=== PATIENT | male | born 1960 | race Caucasian/White ===

== ENCOUNTER 2022-04-02 10:54 | Inpatient (IN) ==
--- NOTE | 2022-03-12 15:48 | PAT Medication Instructions ---
Medication Instructions Date of Service March 12, 2022 Home Medications Medication Instructions Recorded cyclobenzaprine 5 mg tablet 5 mg PO TID PRN muscle spasm #14 12/19/21 tabs albuterol sulfate 90 mcg/actuation aerosol inhaler 2 puff inhalation Q4 PRN amoxicillin 875 mg-potassium clavulanate 125 mg tablet 1 tab PO .BID atorvastatin 20 mg tablet 20 mg PO HS betamethasone valerate 0.1 % topical cream 1 applic topical BID PRN fluticasone 250 mcg-salmeterol 50 mcg/dose blistr powdr for inhalation 1 ea inhalation BID folic acid 1 mg tablet 1 mg PO QAM ipratropium 0.5 mg-albuterol 3 mg (2.5 mg base)/3 mL nebulization soln 3 ml inhalation QID PRN lisinopril 10 mg tablet 10 mg PO HS methotrexate sodium 2.5 mg tablet 15 mg PO .QTHUR polyethylene glycol 3350 17 gram oral powder packet (Miralax) 17 g PO DAILY PRN prednisone 10 mg tablet 10 mg PO .TAPER UD tamsulosin 0.4 mg capsule 0.4 mg PO QPM tiotropium bromide 2.5 mcg/actuation mist for inhalation (Spiriva Respimat) 2 inh inhalation DAILY triamcinolone acetonide 0.1 % topical cream 1 applic topical BID PRN warfarin 5 mg tablet 10 mg PO UD cyclobenzaprine 5 mg tablet 5 mg PO TID PRN STOP 7 days before surgery methotrexate sodium 2.5 mg tablet 15 mg PO .QTHUR-check with prescriber if acceptable to stop for 7 days Continue as directed amoxicillin 875 mg-potassium clavulanate 125 mg tablet 1 tab PO .BID prednisone 10 mg tablet 10 mg PO .TAPER UD ASK your prescriber and surgeon warfarin 5 mg tablet 10 mg PO UD STOP taking 24 hours before surgery betamethasone valerate 0.1 % topical cream 1 applic topical BID PRN triamcinolone acetonide 0.1 % topical cream 1 applic topical BID PRN DO NOT take the morning of surgery folic acid 1 mg tablet 1 mg PO QAM polyethylene glycol 3350 17 gram oral powder packet (Miralax) 17 g PO DAILY PRN cyclobenzaprine 5 mg tablet 5 mg PO TID PRN Take morning of surgery With a small sip of water, OTHERWISE NOTHING TO EAT OR DRINK AFTER MIDNIGHT: albuterol sulfate 90 mcg/actuation aerosol inhaler 2 puff inhalation Q4 PRN(use if needed; please bring with you to hospital day of surgery if possible) fluticasone 250 mcg-salmeterol 50 mcg/dose blistr powdr for inhalation 1 ea inhalation BID ipratropium 0.5 mg-albuterol 3 mg (2.5 mg base)/3 mL nebulization soln 3 ml inhalation QID PRN(if needed) tiotropium bromide 2.5 mcg/actuation mist for inhalation (Spiriva Respimat) 2 inh inhalation DAILY Take evening before surgery albuterol sulfate 90 mcg/actuation aerosol inhaler 2 puff inhalation Q4 PRN(if needed) atorvastatin 20 mg tablet 20 mg PO HS fluticasone 250 mcg-salmeterol 50 mcg/dose blistr powdr for inhalation 1 ea inhalation BID ipratropium 0.5 mg-albuterol 3 mg (2.5 mg base)/3 mL nebulization soln 3 ml inhalation QID PRN(if needed) lisinopril 10 mg tablet 10 mg PO HS tamsulosin 0.4 mg capsule 0.4 mg PO QPM tiotropium bromide 2.5 mcg/actuation mist for inhalation (Spiriva Respimat) 2 inh inhalation DAILY cyclobenzaprine 5 mg tablet 5 mg PO TID PRN(if needed) Other Notes If you have any questions please call us at [phone] or [phone] or [phone] or [phone]
--- NOTE | 2022-03-19 14:09 | Anesthesiology Consultation ---
Date of Service March 19, 2022 Assessment & Plan (1) Encounter for pre-operative examination: Chart Review Chart Review: Acceptable Risk for Surgery (pending PCP clearance 03/22/22) and Patient seen in Pre Admission Testing -Awaiting PCP clearance 03/22/22 - Check coags AM DOS Per PAT appt on 03/19/22, patient denies any recent travel or large group activities. Pt is vaccinated for Covid. Will leave to surgeon's discretion if preop Covid testing needed. Educated on importance of using Covid precautions one week prior to surgery Teaching & Discussion Pre-Anesthesia Teaching/Discussion Notes: Instructed NPO after midnight before surgery,except medications with 15 cc of water. Medication instructions provided according to the PAT guidelines. History Surgery Operation Date: 04/02/22 10:25 Proposed Procedures p L2-L3 Decompression and Fusion, L3-L5 Hardware Removal, Spinal Cord Monitoring - Jay Gallardo, Height/Weight Height: 5 ft 8 in Weight: 114.6 kg Allergies Allergy/AdvReac Type Severity Reaction Status Date / Time No Known Allergies Allergy Verified 03/12/22 14:33 Medications Home Medications Medication Instructions Recorded Confirmed Last Taken albuterol sulfate 90 mcg/actuation 2 puff inhalation Q4 PRN Shortness 12/18/21 03/12/22 Unknown aerosol inhaler Of Breath Or Wheezing amoxicillin 875 mg-potassium 1 tab PO .BID UD 12/18/21 03/12/22 Unknown clavulanate 125 mg tablet atorvastatin 20 mg tablet 20 mg PO HS 12/18/21 03/12/22 Unknown betamethasone valerate 0.1 % 1 applic topical BID PRN FLARE UPS 12/18/21 03/12/22 Unknown topical cream fluticasone 250 mcg-salmeterol 50 1 ea inhalation BID 12/18/21 03/12/22 Unknown mcg/dose blistr powdr for inhalation folic acid 1 mg tablet 1 mg PO QAM 12/18/21 03/12/22 Unknown ipratropium 0.5 mg-albuterol 3 mg 3 ml inhalation QID PRN Shortness 12/18/21 03/12/22 Unknown (2.5 mg base)/3 mL nebulization Of Breath Or Wheezing soln lisinopril 10 mg tablet 10 mg PO HS 12/18/21 03/12/22 Unknown methotrexate sodium 2.5 mg tablet 15 mg PO .QTHUR 10/11/22 01/03/23 Unknown polyethylene glycol 3350 17 gram 17 g PO DAILY PRN Constipation 12/18/21 03/12/22 Unknown oral powder packet (Miralax) prednisone 10 mg tablet 10 mg PO .TAPER UD 12/18/21 03/12/22 Unknown tamsulosin 0.4 mg capsule 0.4 mg PO QPM 12/18/21 03/12/22 Unknown tiotropium bromide 2.5 2 inh inhalation DAILY 12/18/21 03/12/22 Unknown mcg/actuation mist for inhalation (Spiriva Respimat) triamcinolone acetonide 0.1 % 1 applic topical BID PRN BREAKOUTS 12/18/21 03/12/22 Unknown topical cream warfarin 5 mg tablet 10 mg PO UD 12/18/21 03/12/22 Unknown cyclobenzaprine 5 mg tablet 5 mg PO TID PRN muscle spasm #14 12/19/21 03/12/22 Unknown tabs Past Medical History Medical History Arthritis ? TYPE>BEEN ON METHOTREXATE FOR 2 YEARS Chronic obstructive pulmonary disease Breathing stable Degenerative disc disease Hyperlipidemia Pulmonary embolism 5-6 YEARS AGO *REASON FOR WARFARIN (UNSURE OF REASON) Sleep apnea BIPAP WITH 2L OF O2 AT HS Urinary frequency Exercise / Class Metabolic Activity III < 4 Walking/Shop/Light housework (mild SOB, no chest pain with one flight of stairs ) Past Family History Family History Other No family history of adverse response to anesthesia Past Surgical History Surgical History H/O elbow surgery RT ELBOW DEBRIDEMENT 20+ YEARS AGO *MRSA H/O vasectomy History of arthroscopy LEFT ACL/KNEE History of colonoscopy History of lumbar surgery X 2 *FUSION WITH HARDWARE History of surgery History of circumcision and vasectomy 20 years ago History of tooth extraction Past Anesthesia History No Hx of Anesthesia Complications and No Family Hx of Anesthesia Complications History of PONV No Hx of PONV and No Hx of Motion Sickness Social History Smoking Status: Current every day smoker tobacco type: cigarettes Smoking cigarettes per day: 20 CIG DAILY X 47 YEARS>ADVISED Do You Dip or Chew Tobacco: No Hx Alcohol Use: Yes alcohol intake frequency: holidays/special occasions only Hx Substance Use: No substance use type: does not use Review of Systems Chronic cough- stable Patient denies chest pain, shortness of breath at rest, reflux, wheezing, palpitations. No hx of seizures, stroke, [place]. No hx of blood transfusions Physical Exam Vital Signs VITALS BP 123/81 P 70 TEMP 98.5 SP02 95% RESP 16 Constitutional no acute distress ENMT Mouth: no TMJ clicking Thyromental Distance: > or= 3.5 Finger Breadths (4.0) Mallampati Class: I (smaller airway) Mouth / Teeth: 1. Loose Missing molars Neck + limited neck extension (mild) Respiratory normal respiratory effort; no respiratory distress Auscultation: lungs clear to auscultation bilaterally and + diminished lung jerome nds (throughout ); no wheezes Cardiovascular Rate/Rhythm: regular rate and regular rhythm Heart Sounds: no murmur Vessels: no carotid bruit Heart sounds diminished Musculoskeletal Spine: + pain with cervical ROM Extremities: extremities normal to inspection Psychiatric Orientation: alert Lab Results Anesthesia Preop Results Results Anesthesia Widget: WBC 7.91 K/ul (4.8-10.8) 03/19/22 Hgb 18.2 g/dl (14.0-18.0) H 03/19/22 Hct 52.6 % (40.1-51.0) H 03/19/22 Plt 198 K/uL (130-400) 03/19/22 Na 139 mmol/L (136-145) 03/19/22 K 4.1 mmol/L (3.5-5.1) 03/19/22 Cl 104 mmol/L (98-107) 03/19/22 CO2 30 mmol/L (21-32) 03/19/22 BUN 15 mg/dl (6-23) 03/19/22 Creat 0.79 mg/dl (0.6-1.4) 03/19/22 Glucose Level 97 mg/dl (70-99(Fasting)) 03/19/22 PT 27.3 Seconds (9.0-12.0) H 03/19/22 PTT 44.6 Seconds (21.0-31.0) H 03/19/22 INR 2.7 (0.9-1.1) H 03/19/22 Urine Color Yellow 03/19/22 Urine Appearance Clear (Clear) 03/19/22 Urine pH 5.0 (4.5-7.5) 03/19/22 Urine Specific [place] 1.022 (1.000-1.030) 03/19/22 Urine Protein Negative (Negative) 03/19/22 Urine Glucose (UA) Negative (Negative) 03/19/22 Urine Ketones Negative (Negative) 03/19/22 Urine Blood 2+ (Negative) H 03/19/22 Urine Nitrite Negative (Negative) 03/19/22 Urine Bilirubin Negative (Negative) 03/19/22 Urine Urobilinogen Negative (Negative) 03/19/22 Urine Leukocyte Esterase Negative (Negative) 03/19/22 Urine WBC (Auto) 1-5 /hpf (0-5) 03/19/22 Urine RBC (Auto) 0-4 /hpf (0-4) 03/19/22 Urine Hyaline Casts (Auto) 1-5 /lpf (0-5) 03/19/22 Urine Epithelial Cells (Auto) 5-10 /lpf (0-5) H 03/19/22 Urine Bacteria (Auto) Negative (Negative) 03/19/22 Blood Type B Positive 03/19/22 Antibody Screen NEGATIVE 03/19/22 Testing Electrocardiogram Date: 03/19/22 Findings: + NSR @ (71bpm ) Normal EKG per cardio Chest X-Ray Date: 03/19/22 Findings: + NAD FINDINGS: PA and lateral chest radiographs are compared to study dated 02/25/2015 and correlated with chest CT dated 07/07/2015. The cardiomediastinal silhouette is top normal for projection noting atherosclerotic calcification of the thoracic aorta. Emphysema and chronic interstitial thickening is similar to previous. Foci of parenchymal scarring are seen throughout both lungs, greatest in the left midlung. No airspace consolidation or pleural effusion is identified. There is no pneumothorax. The bony thorax appears intact. IMPRESSION: Emphysema and chronic parenchymal changes as above with no acute cardiopulmonary abnormality identified. Cervical Spine Date: 03/19/22 FINDINGS: The cervical spine is visualized from C1 through the superior endplate of T1. There is no fracture. No subluxation. Severe disc space narrowing at C4- C5 and C6-C7. Mild to moderate disc space narrowing at C3-C4 and C5-C6. Mild facet degenerative changes throughout the cervical spine. Calcifications within the bilateral carotid bifurcations are noted. Prevertebral soft tissues and the atlantodens interval are intact. IMPRESSION: 1. No fracture or subluxation within the cervical spine. 2. Degenerative changes as described above. COVID-19 Risk Screen Screening Information COVID-19 Screen Date: 03/19/22 Exposure 21 Days Family/Household +COVID Last 21 Days: No Exposure 10 Days Any COVID Exposure Last 10 Days: No Symptoms Last 10 Days Experienced COVID Sx Last 10 Days: No + COVID 0-90 Days COVID + in Last 0-90 Days: No Risk Plan COVID Risk Plan: No Risk Identified Patient Education COVID Preop Screening Education Complete: Yes
[~2022-04-02 10:54] MED LIST: ACETAMINOPHEN 500 MG TAB PO SCH; CeleBREX 200 MG CAP PO SCH; GABAPENTIN 600 MG DOSE PO SCH; LR 15ML/HR IV SCH; SUGAMMADEX SODIUM 200 MG/2 ML VIAL IV ONE; ceFAZolin 2000MG 2,000 MG/15 ML SYR IV SCH
[2022-04-02] MEDS ORDERED: ALBUT/IPRATROP 3MG/0.5MG NEB 3 ML VIAL NEB STA (11:46)
[2022-04-02 12:09] LABS: Partial Thromboplastin Ratio 1.1; Partial Thromboplastin Time 30.2 Seconds (21.0-31.0); Prothrombin Time 10.3 Seconds (9.0-12.0)
[2022-04-02] MEDS ORDERED: ATROPINE SULFATE 0.1 MG/ML 10ML SYR IV PRN (12:52)
[2022-04-02] MEDS ORDERED: ONDANSETRON INJ 2 MG/ML 2 ML VIAL IV PRN ×2 (12:52→17:16)
[2022-04-02] MEDS ORDERED: ePHEDrine sulfate 50 MG/ML AMP IV PRN (12:52)
--- NOTE | 2022-04-02 13:01 | History & Physical Bridge Note ---
Date of Service April 02, 2022 History & Physical Bridge Note I have examined the patient, reviewed the History & Physical and in the interval since the performance of the History & Physical I have noted the following changes of clinical significance: no changes noted
--- NOTE | 2022-04-02 13:02 | History & Physical Report ---
Date of Service April 02, 2022 Assessment & Plan (1) Neurogenic claudication due to lumbar spinal stenosis: Plan: L2-L3 decompression fusion, L3-L5 hardware removal History of Present Illness Chief Complaint: Back and leg pain Primary Care Provider: Sumit Levy MD This is a 61-year-old male presents with chronic persistent back and leg pain after failing course of nonoperative care is here for surgical invention. Allergies Allergy/AdvReac Type Severity Reaction Status Date / Time No Known Allergies Allergy Verified 04/02/22 11:16 Home Medications Medication Instructions Recorded Confirmed Type albuterol sulfate 90 mcg/actuation 2 puff inhalation Q4 PRN Shortness 12/18/21 04/02/22 History aerosol inhaler Of Breath Or Wheezing amoxicillin 875 mg-potassium 1 tab PO .BID UD 12/18/21 04/02/22 History clavulanate 125 mg tablet atorvastatin 20 mg tablet (Lipitor) 20 mg PO HS 12/18/21 04/02/22 History betamethasone valerate 0.1 % 1 applic topical BID PRN FLARE UPS 12/18/21 04/02/22 History topical cream fluticasone 250 mcg-salmeterol 50 1 ea inhalation BID 12/18/21 04/02/22 History mcg/dose blistr powdr for inhalation (Advair Diskus) folic acid 1 mg tablet 1 mg PO QAM 12/18/21 04/02/22 History ipratropium 0.5 mg-albuterol 3 mg 3 ml inhalation QID PRN Shortness 12/18/21 04/02/22 History (2.5 mg base)/3 mL nebulization Of Breath Or Wheezing soln lisinopril 10 mg tablet 10 mg PO HS 12/18/21 04/02/22 History methotrexate sodium 2.5 mg tablet 15 mg PO .QTHUR 12/18/21 04/02/22 History polyethylene glycol 3350 17 gram 17 g PO DAILY PRN Constipation 12/18/21 04/02/22 History oral powder packet (Miralax) prednisone 10 mg tablet 10 mg PO .TAPER UD 12/18/21 04/02/22 History tamsulosin 0.4 mg capsule (Flomax) 0.4 mg PO QPM 12/18/21 04/02/22 History tiotropium bromide 2.5 2 inh inhalation DAILY 12/18/21 04/02/22 History mcg/actuation mist for inhalation (Spiriva Respimat) triamcinolone acetonide 0.1 % 1 applic topical BID PRN BREAKOUTS 12/18/21 04/02/22 History topical cream warfarin 5 mg tablet 10 mg PO UD 12/18/21 04/02/22 History cyclobenzaprine 5 mg tablet 5 mg PO TID PRN muscle spasm #14 12/19/21 04/02/22 Rx tabs enoxaparin 100 mg/mL subcutaneous 100 mg subcut Q12H 04/02/22 04/02/22 History syringe (Lovenox) Past Med/Surg History Medical History (Updated 04/02/22 @ 13:02 by Jay Gallardo DO) Arthritis ? TYPE>BEEN ON METHOTREXATE FOR 2 YEARS Chronic obstructive pulmonary disease Breathing stable Degenerative disc disease Hyperlipidemia Hypertension Per PCP instructions Lupus anticoagulant disorder Per PCP records Hx of PE - On Warfarin Pulmonary embolism 5-6 YEARS AGO *REASON FOR WARFARIN (UNSURE OF REASON) Sleep apnea BIPAP WITH 2L OF O2 AT HS Urinary frequency Surgical History H/O elbow surgery RT ELBOW DEBRIDEMENT 20+ YEARS AGO *MRSA H/O vasectomy History of arthroscopy LEFT ACL/KNEE History of colonoscopy History of lumbar surgery X 2 *FUSION WITH HARDWARE History of surgery History of circumcision and vasectomy 20 years ago History of tooth extraction Family History Other No family history of adverse response to anesthesia Social History Smoking Status: Current every day smoker Cigarettes Per Day: 20 CIG DAILY X 47 YEARS>ADVISED; Second Hand Exposure: Yes (FAMILY SMOKES); Do You Dip or Chew Tobacco: No; Hx Alcohol Use: Yes Hx Substance Use: No Preferred Language: Sinhala Firefighting Equipment Specialist Required: No Beliefs That Will Affect Care: None Current Living Situation: Spouse Feels Safe at Home: Yes Safety Concerns: Feels Safe At This Time Assistive Devices: BiPap, Glasses, Nebulizer and Oxygen - at Night Physical Exam Physical Exam: Patient is alert and oriented Heart regular rhythm Lungs clear Results & Data Results & Data ([facility]) Vital Signs (Past 12 Hours) Vital Signs Temp Pulse Resp BP Pulse Ox O2 Del Method 04/02/22 11:58 74 16 95 Room Air 04/02/22 11:22 37.1 C 83 22 155/85 H 93 Room Air 04/02/22 11:22 Room Air
[2022-04-02] MEDS ORDERED: BUPIVACAINE/EPINEPHRINE 0.25% 1:200,000 30 ML VIAL ONE (13:13)
[2022-04-02] MEDS ORDERED: ceFAZolin 330 MG/ML 1 GM VIAL ONE (13:13)
[2022-04-02] MEDS ORDERED: fentaNYL citrate 100 MCG/2 ML VIAL ONE ×2 (13:17→14:36)
[2022-04-02] MEDS ORDERED: MIDAZOLAM HCL 1 MG/ML 2ML VIAL ONE (13:17)
[2022-04-02] MEDS ORDERED: PROPOFOL IV EMULSION 10 MG/ML 20 ML VIAL IV ONE (14:03)
[2022-04-02] MEDS ORDERED: ROCURONIUM BROMIDE 10 MG/ML 5 ML VIAL IV ONE ×2 (14:03→14:04)
[2022-04-02] MEDS ORDERED: LIDOCAINE 2% MPF LOCAL 5 ML VIAL INFIL ONE (14:03)
[2022-04-02] MEDS ORDERED: KETAMINE 50 MG/5 ML SYRINGE ONE (14:35)
[2022-04-02] MEDS ORDERED: ONDANSETRON INJ 2 MG/ML 2 ML VIAL ONE (14:39)
[2022-04-02] MEDS ORDERED: DEXAMETHASONE SOD INJ 4 MG/ML VIAL ONE (14:39)
[2022-04-02] MEDS ORDERED: FLOSEAL HEMOSTATIC MATRIX 10ML TOP ONE (15:07)
--- NOTE | 2022-04-02 15:15 | Operative Report ---
Post Operative Report Pre & Post Diagnosis Operation Date: 04/02/22 12:25 Pre-Op Diagnosis: Intervertebral Disc Disorders with Radiculopathy Post-Op Diagnosis: Intervertebral Disc Disorders with Radiculopathy I identified the patient and participated in the time-out.: Yes Procedure Operation Date: 04/02/22 12:25 Actual Procedures #1 lumbar decompression bilateral medial facetectomies and foraminotomies L1-L2 L2-L3. #2 posterior spinal fusion L2-L3. #3 placement of posterior instrumentation from L2 with connectors to L3-L4. #4 interbody fusion L2-L3. #5 placement of Spira 9 x 26 mm cage at L2-L3. #6 placement locally harvested morselized autograft in the posterior gutters. #7 placement of I factor model V toss in the interbody space and posterior lateral gutters. Surgeon Jay Gallardo, DO Senior Manufacturing Engineer Josette Miller Estimated Blood Loss 150 Findings See Below Patient is 5 foot 8 weighing 115 kg with a BMI in excess of 38. Patient's body habitus did contribute to significant technical difficulty with patient positioning and exposure. This had at least 50% increased operative time. Specimens None Indications This is a 61-year-old male who presents above-mentioned diagnosis after failed course of nonoperative care is here for surgical invention. Description of Procedure Patient was met with identified informed consent obtained. Patient was then taken to the operative suite underwent ablation placed in a prone position on the Angel table atop the Orlin frame. All bony prominences well-padded eyes inspected to ensure no external pressure placed upon the. This point the lumbar spine was prepped and draped in a sterile fashion. Sharp dissection with the assistance of Bovie cautery performed down to and exposing the lamina and transverse processes of L2 and instrumentation at L3-L4. I then performed a complete laminectomy of L2 partial laminectomy L1 including bilateral medial facetectomies and foraminotomies addressing severe spinal stenosis. Pedicle screws then placed in L2 and a connector attached to the kamila between L3 and L4. By way of transforaminal approach and right complete discectomy of L 2 L3 was performed endplates curetted to subcortically bone and a 9 x 26 mm spiral cage with I factor tapped in position. The proper sized kamila was then placed and locked in position bilaterally. The transverse processes of L2-L3 burred to subcortically bone. I factor model V testing locally harvested morselized a utograft was then placed in the posterior gutters. 15 round CHAPARRO drain inserted. The incision was then closed with 1 Vicryl the fascia 2-0 Vicryl subcutaneously and 4 Monocryl for final skin closure. Steri-Strips dressings placed. Patient awakened and taken to PACU in stable condition. Please note spinal cord monitoring was utilized at the procedure no changes noted. Lastly Josette Miller was present at the entire surgeon while the patient positioning complex portions of the surgery and final skin closure. I attest to the content of the Intraoperative Record and any orders documented therein. Any exceptions are noted below.
--- NOTE | 2022-04-02 15:21 | Fluoroscopy Report ---
FL lumbar spine 2-3V CLINICAL HISTORY: L2-L3 DECOMPRESSION FUSION L3-L5 HW REMOVAL TECHNIQUE: 2 views were obtained with the C-arm in the OR with the above procedure. Total fluoroscopy time was 22.6 seconds. Radiation dose was 23.09 mGy. Comparison: None available at the time of this dictation. FINDINGS/IMPRESSION: Intraoperative images were obtained of L2-L3 discectomy and fusion. Please correlate with intraoperative fluoroscopy and operative report. ACT 112: Negative or not required by law. Electronically signed by: Scott Currie M.D. 04/02/2022 3:19 PM
[2022-04-02] MEDS: fentaNYL citrate 100 MCG/2 ML VIAL IV PRN ×2 (15:50→16:00)
[2022-04-02] MEDS: HYDROmorphone INJ 2 MG/ML SYR/VIAL IV PRN ×2 (16:23→16:32)
--- NOTE | 2022-04-02 16:55 | Anesthesiology Progress Note ---
Date of Service April 02, 2022 Anesthesia Post Procedure Vital Signs Vital Signs: Temp Pulse Resp BP Pulse Ox O2 Del Method O2 Flow Rate 04/02/22 16:40 78 12 140/90 92 Nasal Cannula 4 04/02/22 16:30 72 12 144/81 H 92 Nasal Cannula 4 04/02/22 16:20 66 12 128/83 94 Nasal Cannula 4 04/02/22 16:10 67 22 138/81 93 Oxymask 3 04/02/22 16:00 76 20 140/88 93 Oxymask 4 04/02/22 15:50 87 16 166/94 H 93 Oxymask 6 04/02/22 15:43 36.5 C 89 16 141/78 H 96 Oxymask 6 04/02/22 11:58 74 16 95 Room Air 04/02/22 11:22 37.1 C 83 22 155/85 H 93 Room Air 04/02/22 11:22 Room Air Pain Intensity Back: Pain Intensity: 6 Transfer of Care Handoff Completed per policy Notes Mental Status: alert / awake / arousable Patient Amnestic to Procedure: Yes Nausea / Vomiting: adequately controlled Pain: adequately controlled Airway Patency, RR, SpO2: stable & adequate BP & HR: stable & adequate Hydration State: stable & adequate Anesthetic Complications: no major complications apparent
[2022-04-02] MEDS ORDERED: LORazepam 0.5 MG TAB PO PRN (17:16)
[2022-04-02] MEDS ORDERED: HYDROmorphone INJ 0.5 MG/0.5 ML SYR IV PRN (17:16)
[2022-04-02] MEDS ORDERED: SOD PHOSPHATE/SOD BIPHOSPHATE ENEMA 132 ML BTL PR PRN (17:16)
[2022-04-02] MEDS ORDERED: ALUMINUM/MAGNESIUM SUSP 30 ML UDC PO PRN (17:16)
[2022-04-02] MEDS ORDERED: diphenhydrAMINE Capsule 25 MG CAP PO PRN (17:16)
[2022-04-02] MEDS ORDERED: METOCLOPRAMIDE HCL INJ 5 MG/ML 2 ML VIAL IV PRN (17:16)
[2022-04-02] MEDS ORDERED: traMADol HCL 50 MG TABLET PO PRN (17:16)
[2022-04-02] MEDS ORDERED: NALOXONE HCL 0.4 MG/1 ML VIAL/CARP IV PRN (17:16)
[2022-04-02] MEDS ORDERED: bisacodyL 10 MG SUPP PR PRN (17:16)
[2022-04-02] MEDS ORDERED: TRIAMCINOLONE ACET 0.1% CR 15 GM TUBE TOP PRN (17:16)
[2022-04-02] MEDS ORDERED: MAGNESIUM HYDROXIDE SUSP 30 ML UDC PO PRN (17:16)
[2022-04-02] MEDS ORDERED: ALBUT/IPRATROP 3MG/0.5MG NEB 3 ML VIAL INH PRN (17:16)
[2022-04-02] MEDS ORDERED: FAMOTIDINE 20 MG TAB PO PRN (17:16)
[2022-04-02] MEDS ORDERED: DO NOT ADMINISTER FLU VACCINE PRN (17:16)
[2022-04-02] MEDS ORDERED: LORazepam 2 MG/1 ML VIAL IV PRN (17:16)
[2022-04-02] MEDS ORDERED: PROMETHAZINE HCL 12.5 MG in SODIUM CHLORIDE 0.9% 50 ML IV PRN (17:16)
[2022-04-02] MEDS ORDERED: hydrOXYzine HCl 25 MG TAB PO PRN (17:16)
[2022-04-02] MEDS ORDERED: ONDANSETRON 4 MG OD TAB PO PRN (17:16)
[2022-04-02] MEDS ORDERED: ACETAMINOPHEN 1,000 MG/100 ML VIAL IV PRN (17:16)
[2022-04-02] MEDS ORDERED: CYCLOBENZAPRINE HCL 5 MG TAB PO PRN (17:16)
[2022-04-02] MEDS ORDERED: HYDROmorphone INJ 1 MG/ML SYRINGE IV PRN (17:16)
[2022-04-02] MEDS ORDERED: ALBUTEROL HFA 8 GM INHALER INH PRN (17:16)
[2022-04-02] MEDS ORDERED: DO NOT ADMINISTER PNEUMOCOCCAL VACCINE PRN (17:16)
[2022-04-02] MEDS: LACTATED RINGER'S 1,000 ML IV SCH (17:55)
[2022-04-02] MEDS: oxyCODONE HCL IR 5 MG TAB (IMMEDIATE RELEASE) PO PRN ×2 (18:02→21:58)
--- NOTE | 2022-04-02 19:28 | Hospitalist Consultation ---
Date of Consultation April 02, 2022 Assessment & Plan (1) History of spinal surgery: This is a 61yo F with a PMH of PE on coumadin, current 1 ppd smoker, ROWAN on Bipap, COPD and other medical problems as below who is POD#0 s/p lumbar decompression bilateral medial facetectomies and foraminotomies L1-L2 L2-L3, posterior spinal fusion L2-L3 and placement of posterior instrumentation from L2 with connectors to L3-L4 by Dr. Gallardo. POD#0 s/p lumbar decompression bilateral medial facetectomies and foraminotomies L1-L2 L2-L3, posterior spinal fusion L2-L3 and placement of posterior instrumentation from L2 with connectors to L3-L4 by Dr. Gallardo Per ortho for pain control, wound care, anticoagulation and activities Monitor H&H (EBL 150ml, pre-op hgb 18.2) Continue incentive spirometry, PT/OT when appropriate (2) Pulmonary embolism: History of PE and lupus anticoagulant syndrome on Coumadin Coumadin has been held and patient has been bridged with subcu Lovenox, per anticoagulation clinic Due to afternoon surgery today, will wait until tomorrow afternoon to resume Coumadin Check INR tomorrow, discuss with Dr. Gallardo Continue subcu Lovenox as scheduled below: POD#1 : Coumadin 10-15mg @ 1600, Lovenox 100mg @ 2000 POD#2 : Coumadin 10mg @ 1600, Lovenox 100mg @ 0800, 2000 POD#3 : Resume home coumadin schedule (5mg MoFri, 10mg all other days), Lovenox 100mg @ 0800, 2000 until INR therapeutic or seen by MTM (3) Arthritis: History of inflammatory polyarthritis on methotrexate -hold for now per Ortho (4) COPD, moderate: At baseline. Continue Spiriva, DuoNeb as needed. Encourage incentive spirometry (5) Tobacco abuse: Smoking 1 pack/day. Declined nicotine patch. Continue discussion of cessation (6) Obesity (BMI 30-39.9): (7) Sleep apnea: Bipap HS Code status:DVT ppx: per primary service PCP: Mildred Dispo: Per primary service Patient seen in collaboration with Dr. García. Please see addendum. Thank you for this consultation. We will follow the patient with you during their hospital stay. You can reach a member of the [facility] Hospitalist Team 30/09 via [employer]. Supervising Physician Co-Signing Physician Notes Pt is a 61 y/o M with hx of inflammatory arthritis on MTX, COPD, HTN, ROWAN on BiPAP, hx of PE on Coumadin admitted for L2-L3 discectomy and fusion and consulted for medical co-management. PE: NAD, Well developed Cardiac: Normal S1/S2, no murmur Lungs: CTA, no wheezing or crackles Abd: Soft, ND, NT MSK: able to move his toes Psych: AAOx3, normal affect A/P: S/P L2-L3 decompression and fusion: -POD #0 -pt is recovering well - VSS except for increase in BP - monitor CBC and BMP -pain management per ortho team -PT/OT - last BM: today --- continue Colace Hx of PE: -pt was bridged to lovenox prior to surgery -pt underwent surgery 3PM today -per Coumadin MTM clinic they recommended Coumadin 15mg tonight ---- however will start Coumadin tomorrow night with lovenox 100mg at 8pm Other chronic conditions: plan as above History of Present Illness Reason for Consultation: post op med mgmt Attending Physician: Jay Gallardo DO History of Present Illness This is a 61yo F with a PMH of PE on coumadin, current 1 ppd smoker, ROWAN on Bipap, COPD and other medical problems as below who is POD#0 s/p lumbar decompression bilateral medial facetectomies and foraminotomies L1-L2 L2-L3, posterior spinal fusion L2-L3 and placement of posterior instrumentation from L2 with connectors to L3-L4 by Dr. Gallardo. Patient is feeling well postoperatively, just having some incisional discomfort. Denies any paresthesias or pain in bilateral lower extremities. Tolerated dinner without nausea or vomiting. Does have history of ROWAN on BiPAP and is currently on supplemental oxygen saturating at 94%. Is on Coumadin for history of PE and has been bridging with subcu Lovenox which he took last yesterday per instructions. Methotrexate has been held. Denies fever, chills, headache, lightheadedness, chest pain, palpitations, shortness of breath, abdominal pain, dysuria, constipation or diarrhea. Allergies Allergy/AdvReac Type Severity Reaction Status Date / Time No Known Allergies Allergy Verified 04/02/22 11:16 Home Medications Medication Instructions Recorded Confirmed Type albuterol sulfate 90 mcg/actuation 2 puff inhalation Q4 PRN Shortness 12/18/21 04/02/22 History aerosol inhaler Of Breath Or Wheezing amoxicillin 875 mg-potassium 1 tab PO .BID UD 12/18/21 04/02/22 History clavulanate 125 mg tablet atorvastatin 20 mg tablet (Lipitor) 20 mg PO HS 12/18/21 04/02/22 History betamethasone valerate 0.1 % 1 applic topical BID PRN FLARE UPS 12/18/21 04/02/22 History topical cream fluticasone 250 mcg-salmeterol 50 1 ea inhalation BID 12/18/21 04/02/22 History mcg/dose blistr powdr for inhalation (Advair Diskus) folic acid 1 mg tablet 1 mg PO QAM 12/18/21 04/02/22 History ipratropium 0.5 mg-albuterol 3 mg 3 ml inhalation QID PRN Shortness 12/18/21 04/02/22 History (2.5 mg base)/3 mL nebulization Of Breath Or Wheezing soln lisinopril 10 mg tablet 10 mg PO HS 12/18/21 04/02/22 History methotrexate sodium 2.5 mg tablet 15 mg PO .QTHUR 12/18/21 04/02/22 History polyethylene glycol 3350 17 gram 17 g PO DAILY PRN Constipation 12/18/21 04/02/22 History oral powder packet (Miralax) prednisone 10 mg tablet 10 mg PO .TAPER UD 12/18/21 04/02/22 History tamsulosin 0.4 mg capsule (Flomax) 0.4 mg PO QPM 12/18/21 04/02/22 History tiotropium bromide 2.5 2 inh inhalation DAILY 12/18/21 04/02/22 History mcg/actuation mist for inhalation (Spiriva Respimat) triamcinolone acetonide 0.1 % 1 applic topical BID PRN BREAKOUTS 12/18/21 04/02/22 History topical cream warfarin 5 mg tablet 10 mg PO UD 12/18/21 04/02/22 History cyclobenzaprine 5 mg tablet 5 mg PO TID PRN muscle spasm #14 12/19/21 04/02/22 Rx tabs enoxaparin 100 mg/mL subcutaneous 100 mg subcut Q12H 04/02/22 04/02/22 History syringe (Lovenox) Patient History Medical History (Updated 04/02/22 @ 20:43 by Marisela Charlton PA-C) Arthritis ? TYPE>BEEN ON METHOTREXATE FOR 2 YEARS Chronic obstructive pulmonary disease Breathing stable Degenerative disc disease Hyperlipidemia Hypertension Per PCP instructions Lupus anticoagulant disorder Per PCP records Hx of PE - On Warfarin Pulmonary embolism 5-6 YEARS AGO *REASON FOR WARFARIN (UNSURE OF REASON) Sleep apnea BIPAP WITH 2L OF O2 AT HS Urinary frequency Surgical History (Updated 04/02/22 @ 20:43 by Marisela Charlton PA-C) H/O elbow surgery RT ELBOW DEBRIDEMENT 20+ YEARS AGO *MRSA H/O vasectomy History of arthroscopy LEFT ACL/KNEE History of colonoscopy History of lumbar surgery X 2 *FUSION WITH HARDWARE History of surgery History of circumcision and vasectomy 20 years ago History of tooth extraction Family History Other Lung disease No family history of adverse response to anesthesia Social History Smoking Status: Current every day smoker Cigarettes Per Day: 20 CIG DAILY X 47 YEARS>ADVISED; Second Hand Exposure: Yes (FAMILY SMOKES); Do You Dip or Chew Tobacco: No; Hx Alcohol Use: Yes Alcohol Intake Frequency: Monthly or Less Hx Substance Use: No Preferred Language: Citizen Of [place] Multi Sensor Operator Required: No Beliefs That Will Affect Care: None Current Living Situation: Spouse Feels Safe at Home: Yes Safety Concerns: Feels Safe At This Time Assistive Devices: BiPap, Glasses, Nebulizer and Oxygen - at Night Review of Systems Review of Systems: At least ten systems reviewed and negative except as noted in the HPI. Physical Exam Physical Exam: Please see Dr. García's addendum for physical exam. Results & Data Results & Data ([facility]) Vital Signs (Past 12 Hours) Vital Signs Temp Pulse Pulse Resp BP Pulse Ox O2 Del Method 04/02/22 18:17 36.8 C 68 20 146/75 H 94 Nasal Cannula 04/02/22 17:45 36.8 C 68 18 148/83 H 93 Nasal Cannula 04/02/22 17:40 Nasal Cannula 04/02/22 17:15 36.9 C 76 18 146/90 H 94 Nasal Cannula 04/02/22 17:00 67 12 136/86 94 Nasal Cannula 04/02/22 16:50 36.7 C 64 12 138/81 93 Nasal Cannula 04/02/22 16:40 78 12 140/90 92 Nasal Cannula 04/02/22 16:30 72 12 144/81 H 92 Nasal Cannula 04/02/22 16:20 66 12 128/83 94 Nasal Cannula 04/02/22 16:10 67 22 138/81 93 Oxymask 04/02/22 16:00 76 20 140/88 93 Oxymask 04/02/22 15:50 87 16 166/94 H 93 Oxymask 04/02/22 15:43 36.5 C 89 16 141/78 H 96 Oxymask 04/02/22 11:58 74 16 95 Room Air 04/02/22 11:22 37.1 C 83 22 155/85 H 93 Room Air 04/02/22 11:22 Room Air O2 Flow Rate 04/02/22 18:17 3.5 04/02/22 17:45 3.5 04/02/22 17:40 3.5 04/02/22 17:15 4 04/02/22 17:00 4 04/02/22 16:50 4 04/02/22 16:40 4 04/02/22 16:30 4 04/02/22 16:20 4 04/02/22 16:10 3 04/02/22 16:00 4 04/02/22 15:50 6 04/02/22 15:43 6 04/02/22 11:58 04/02/22 11:22 04/02/22 11:22
[2022-04-02] MEDS: DOCUSATE SODIUM/SENNA 50/8.6MG TAB PO SCH (20:02)
[2022-04-02] MEDS: TAMSULOSIN HCL 0.4 MG CAP PO SCH (20:02)
[2022-04-02] MEDS: ATORVASTATIN 20 MG TAB PO SCH (20:02)
[2022-04-02] MEDS: lisinopril 10 MG TAB PO SCH (20:02)
[2022-04-02] MEDS: ceFAZolin 2000MG 2,000 MG/15 ML SYR IV SCH (21:30)
[2022-04-03] MEDS: LACTATED RINGER'S 1,000 ML IV SCH (02:24)
[2022-04-03] MEDS: ceFAZolin 2000MG 2,000 MG/15 ML SYR IV SCH (05:26)
[2022-04-03] MEDS: POLYETHYLENE (MIRALAX) 17 GM PACK PO SCH ×4 (05:26→23:28)
[2022-04-03] MEDS: oxyCODONE HCL IR 5 MG TAB (IMMEDIATE RELEASE) PO PRN ×4 (05:31→23:28)
[2022-04-03] MEDS: ACETAMINOPHEN 500 MG TAB PO PRN (05:31)
[2022-04-03 06:48] LABS: Basophils # (auto) 0.02 K/uL (0-0.2); Basophils % (auto) 0.2 %; Hematocrit (blood only) 50.1 % (40.1-51.0); Hemoglobin 17.1 g/dl (14.0-18.0); Immature Granulocytes # (auto) 0.05 K/uL (0.00-0.02); Immature Granulocytes % (auto) 0.5 %; Lymphocytes % (auto) 10.8 %; Mean Corpuscular Hemoglobin 34.7 pg (25.0-34.0); Mean Corpuscular Hgb Conc 34.1 g/dL (32.0-36.0); Mean Corpuscular Volume 101.6 fL (80.0-100.0); Mean Platelet Volume 10.7 fL (9.4-12.4); Monocytes # (auto) 0.65 K/uL (0.24-0.82); Neutrophils # (auto) 7.56 K/uL (1.4-6.5); Neutrophils % (auto) 81.5 %; Platelet Count 179 K/uL (130-400); RDW Coefficient of Variation 14.1 % (11.5-14.5); RDW Standard Deviation 53.2 fL (36.4-46.3); Red Blood Count 4.93 M/uL (4.63-6.08); White Blood Count 9.28 K/ul (4.8-10.8)
[2022-04-03 06:58] LABS: BUN Creatinine Ratio 15.3 (10-20); Creatinine Clr Calc Pharmacy 115.2 ml/min; Est GFR (African American) 110.5 ml/min; Est GFR (Non-African American) 95.4 ml/min
[2022-04-03] MEDS: FOLIC ACID 1 MG TAB PO SCH (07:28)
[2022-04-03] MEDS: FLUTICASONE/VILANTEROL 100/25MCG 14 PUFFS/INHALER INH SCH (07:28)
[2022-04-03] MEDS: UMECLIDINIUM BROMIDE 62.5MCG/BLISTER 7 PUFFS/INHALER INH SCH (07:28)
[2022-04-03 07:37] LABS: Prothrombin Time 10.4 Seconds (9.0-12.0)
--- NOTE | 2022-04-03 12:40 | Hospitalist Progress Note ---
Date of Service April 03, 2022 Assessment & Plan (1) History of spinal surgery: Plan: This is a 61yo F with a PMH of PE on coumadin, current 1 ppd smoker, ROWAN on Bipap, COPD and other medical problems as below who is POD#0 s/p lumbar decompression bilateral medial facetectomies and foraminotomies L1-L2 L2-L3, posterior spinal fusion L2-L3 and placement of posterior instrumentation from L2 with connectors to L3-L4 by Dr. Gallardo. POD#1 s/p lumbar decompression bilateral medial facetectomies and foraminotomies L1-L2 L2-L3, posterior spinal fusion L2-L3 and placement of posterior instrumentation from L2 with connectors to L3-L4 by Dr. Gallardo Per ortho for pain control, wound care, anticoagulation and activities Monitor H&H (EBL 150ml, pre-op hgb 18.2) hgb 17.1 today Continue incentive spirometry, PT/OT when appropriate (2) Pulmonary embolism: Plan: History of PE and lupus anticoagulant syndrome on Coumadin Coumadin has been held and patient has been bridged with subcu Lovenox, per anticoagulation clinic Due to afternoon surgery today, will wait until tomorrow afternoon to resume Coumadin INR 1.[address] Gallardo who wishes to hold bridge until tomorrow evening to allow for hemostasis 48hrs post op so will adjust. Continue subcu Lovenox as scheduled below: POD#2 : Coumadin 10-15mg @ 1600, Lovenox 100mg @ 1999 POD#3 : Coumadin 10mg @ 1600, Lovenox 100mg @ 08, 1999 POD#4 : Resume home coumadin schedule (5mg MoFri, 10mg all other days), Lovenox 100mg @ 799, 1999 until INR therapeutic or seen by MTM (3) Arthritis: Plan: History of inflammatory polyarthritis on methotrexate -hold for now per Ortho (4) COPD, moderate: Plan: At baseline. Continue Spiriva, DuoNeb as needed. Encourage incentive spirometry (5) Tobacco abuse: Plan: Smoking 1 pack/day. Declined nicotine patch. Continue discussion of cessation (6) Obesity (BMI 30-39.9): (7) Sleep apnea: Plan: Bipap HS Code status:DVT ppx: per primary service PCP: Mildred Dispo: Per primary service Patient seen in collaboration with Dr. Covington. Please see addendum. Thank you for this consultation. We will follow the patient with you during their hospital stay. You can reach a member of the [facility] Hospitalist Team 30/09 via [employer]. A total of 35 minutes were spent with greater than 50% of that time face to face with the patient, personally reviewing all current laboratories, imaging studies, past medication reconciliation, outpatient chart review, and discussion with specialists to collaborate care for the patient with attending. Please see attending documentation for corrections and/or additions. Admission and Anticipated Discharge Date Admission Date: April 02, 2022 Supervising Physician Co-Signing Physician Notes Patient seen and examined at bedside as a follow-up of medical management for spinal surgery. Patient has a history of PE and lupus anticoagulant syndrome on Coumadin. Patient doing fairly well postoperatively, reports pain under control at operative site, denies any RLE radicular symptoms but reports having such symptoms only with standing/walking and patient has not worked with PT by the time I saw the patient. On examination, patient on room air, heart/lung/abdomen examination fairly WNL, low back with clean dressing without soakage, CHAPARRO drain with moderate serosanguineous collection noted. Rest of the examination as above. I have seen and examined the patient and have discussed the case with the provider above. I agree with the assessment and plan as stated. Subjective Patient was seen and examined in room 321-1 Follow up lumbar surgery. Offers no complaints, wondering when he can go home. He denies f/c/s, chest pain, sob, n/v/d. Tolerating diet. Review of Systems Review of Systems: At least ten systems reviewed and negative except as noted in the HPI. Physical Exam Physical Exam: Gen: WD/WN, obese, M, NAD, A&O x3 HEENT: Normocephalic, atraumatic, conjunctivae moist, sclerae anicteric, mucous membranes moist. Lung: Clear to Auscultation bilaterally, no wheezes/rales/rhonchi Heart: Regular rate, regular rhythm, no murmurs, rubs, or gallops Abdomen: Soft, NT, ND +BS x 4 Extremities: No edema, lumbar dressing CDI, CHAPARRO drain with sersosang drainage Skin: Warm, no rash, negative turgor. Results & Data Results & Data ([facility]) Vital Signs (Past 12 Hours) Vital Signs Temp Pulse Pulse Resp BP Pulse Ox O2 Del Method 04/03/22 11:00 36.6 C 89 18 118/75 92 Room Air 04/03/22 07:44 Room Air 04/03/22 07:18 37 C 66 16 112/69 94 Room Air 04/03/22 06:36 79 18 94 Room Air 04/03/22 05:32 73 20 93 Room Air 04/03/22 03:36 36.4 C L 74 20 102/65 97 BiPAP 04/03/22 02:49 78 17 93 O2 Flow Rate 04/03/22 11:00 04/03/22 07:44 04/03/22 07:18 04/03/22 06:36 04/03/22 05:32 04/03/22 03:36 04/03/22 02:49 3
--- NOTE | 2022-04-03 12:44 | Orthopedic Progress Note ---
Date of Service April 03, 2022 Assessment & Plan (1) Neurogenic claudication due to lumbar spinal stenosis: Plan: At this time the we will continue physical therapy monitor CHAPARRO output hopefully discharge home in next few days. Admission and Anticipated Discharge Date Admission Date: April 02, 2022 Subjective Patient's back pain is controlled leg symptoms improved Physical Exam Physical Exam: Patient is comfortable. Is good strength testing. Results & Data ([facility]) Vital Signs (Past 12 Hours) Vital Signs Temp Pulse Pulse Resp BP Pulse Ox O2 Del Method 04/03/22 11:00 36.6 C 89 18 118/75 92 Room Air 04/03/22 07:44 Room Air 04/03/22 07:18 37 C 66 16 112/69 94 Room Air 04/03/22 06:36 79 18 94 Room Air 04/03/22 05:32 73 20 93 Room Air 04/03/22 03:36 36.4 C L 74 20 102/65 97 BiPAP 04/03/22 02:49 78 17 93 O2 Flow Rate 04/03/22 11:00 04/03/22 07:44 04/03/22 07:18 04/03/22 06:36 04/03/22 05:32 04/03/22 03:36 04/03/22 02:49 3
[2022-04-03] MEDS ORDERED: ENOXAPARIN INJ 120 MG/0.8 ML SYR SQ SCH (15:15)
[2022-04-03] MEDS ORDERED: WARFARIN SOD 10 MG TAB PO SCH (16:00)
[2022-04-03] MEDS: DOCUSATE SODIUM/SENNA 50/8.6MG TAB PO SCH (19:56)
[2022-04-03] MEDS: lisinopril 10 MG TAB PO SCH (19:56)
[2022-04-03] MEDS: ATORVASTATIN 20 MG TAB PO SCH (19:56)
[2022-04-03] MEDS: TAMSULOSIN HCL 0.4 MG CAP PO SCH (19:56)
[2022-04-03] MEDS ORDERED: ENOXAPARIN 100 MG/1ML SYR SQ SCH (20:00)
[2022-04-04] MEDS: POLYETHYLENE (MIRALAX) 17 GM PACK PO SCH ×2 (05:27→13:49)
[2022-04-04] MEDS: ACETAMINOPHEN 500 MG TAB PO PRN ×2 (05:30→16:23)
[2022-04-04 08:19] LABS: Prothrombin Time 10.3 Seconds (9.0-12.0)
[2022-04-04] MEDS: oxyCODONE HCL IR 5 MG TAB (IMMEDIATE RELEASE) PO PRN ×2 (08:31→13:49)
[2022-04-04] MEDS: FOLIC ACID 1 MG TAB PO SCH (08:32)
[2022-04-04] MEDS: FLUTICASONE/VILANTEROL 100/25MCG 14 PUFFS/INHALER INH SCH (08:33)
[2022-04-04] MEDS: UMECLIDINIUM BROMIDE 62.5MCG/BLISTER 7 PUFFS/INHALER INH SCH (08:33)
--- NOTE | 2022-04-04 08:48 | Discharge Summary ---
Date of Service April 04, 2022 Admission HPI Per Admitting Provider This is a 61-year-old male presents with chronic persistent back and leg pain after failing course of nonoperative care is here for surgical invention. Principal Diagnosis Lumbar spinal stenosis Discharge Data Allergies Allergy/AdvReac Type Severity Reaction Status Date / Time No Known Allergies Allergy Verified 04/02/22 11:16 Consultations 04/02/22 17:16 Consult Hospitalist Routine Procedures Performed Operation Date: 04/02/22 12:25 Actual Procedures p L2-L3 Decompression and Fusion, Spinal Cord Monitoring - Jay Gallardo DO Ordered Studies 04/02/22 12:25 [place] lumbar spine 2-3V Routine Hospital Course (1) Neurogenic claudication due to lumbar spinal stenosis: Patient underwent lumbar decompression and fusion. Patient tolerated procedure well. Was a postop day 1 with physical therapy progressed to postop day #2 CHAPARRO drain decreased appropriately. Subsequently discharged home. Discharge orders and instructions found the chart for further review. Total Time Total Time Spent Total Time Spent (In Minutes): 20 minutes Discharge Plan Discharge Items Patient Disposition: Home - Self-Care Reason For Visit: POSTOP Discharge Diagnosis: Lumbar spinal stenosis with neurogenic claudication Activity: As commented below Non-emergency contact: Primary Care Provider Call non-emergency contact if: you have any medication questions Follow-up/Referrals: Sumit Levy MD [Primary Care Provider] - Diet: Regular Addtl Attending Provider Instructions: ACTIVITY RECOMMENDATIONS: SELF CARE INSTRUCTIONS AFTER THORACIC/LUMBAR FUSIONS 1. You may walk to your tolerance. It is good exercise for your legs and back. Expect some back and intermittent leg aches and pains. 2. You may perform "counter-top" level activities (make a sandwich, nicko with a project, etc.). 3. No bending or lifting of more than 10 pounds or back twisting of any nature (roll like a log when turning in bed). 4. You may ride in a car for 20-30 minutes at a time. No driving until after your first visit with your doctor. 5. Frequent changes of position and restricting sitting to 30 minutes at a time will help limit the amount of back spasms and stiffness you may experience. 6. You may discontinue the use of ambulatory aids (cane, crutches, etc.) once your strength and confidence allow. 7. You may workforce planning analyst the shower and let water strike your incision when you arrive home at least once daily. Do not take a tub bath, sit in a hot tub or go into a swimming pool until after your first recheck in the office. SPECIAL CARE INSTRUCTIONS: VERY IMPORTANT TO READ AND REVIEW A. Your surgical incision has been closed with a cosmetic suture under the skin that will dissolve in about 6 weeks. In 14 days, you can use a pair of clean scissors and cut the suture that is left outside of the skin at the ends of your incision. 1. The small skin tapes can be removed 7 days after surgery if they have not fallen off by that point. 2. You may keep the wound open to air as much as possible to promote healing after post-op day number 5 unless told otherwise by your doctor. 3. If you think the wound looks like it is becoming infected (redness or worsening drainage) and/or you are experiencing fever, chill or worsening back pain and muscle spasms, contact the office so that we may evaluate you as soon as possible. B. Complications are uncommon, but please contact us if you have any signs or symptoms of: 1. wound infection (fever higher than 102.5 degrees F, redness, separation of wound, drainage, or increasing pain from the incision) 2. blood clots in legs (pain, swelling, redness and warmth in legs) 3. urinary tract infection (fever higher than 102.5 degrees F, burning upon urination or increased frequency of urination) 4. nerve problems (inability to walk on your toes or heels, numbness, loss of bowel or bladder control) 5. any other symptoms that concern you C. Please call the office at if you have any concerns or questions about your operation or recovery. D. No smoking! Smoking drastically decreases the chance of a solid fusion. E. Do not take any anti-inflammatory medications (Indocin, Advil, Motrin, Aspirin, Naprosyn, etc.) as these may inhibit the chance of a solid fusion. Tylenol is okay to take for pain. MANAGING PAIN AFTER SPINAL SURGERY 1. Narcotic medication is intended for short-term use and will be provided for surgical pain. Surgical pain usually lasts for a period of 4-6 weeks. Narcotic medication includes Percocet, Vicodin, Darvocet, Tylenol #3 or Lortab. 2. Longer-term pain is more appropriately treated with non-narcotic medication such as Tylenol ES. 3. Muscle spasm is not appropriately treated with narcotics. Muscle relaxers such as Soma, Flexeril or Skelaxin can be used along with Tylenol ES. 4. Remember that we all live with some "aches and pains". This is not unusual or uncommon after an injury or as we get older. a. Back pain is expected and may include muscle spasms for 4 to 6 weeks after surgery. The pain should gradually improve. If the pain worsens for no apparent reason, please contact the office. b. Intermittent leg pain may also be experienced and should not be concerned about unless it worsens for no apparent reason. If so, please contact the office. 5. We will provide appropriate medication within the normal guidelines of their prescribed use. We will also be very cautious and aware of potential abuse and extended duration of patients' medication needs. a. Pain medications are for your comfort and to assist with sleep and rest so that the tissue can heal. They are not provided in order to return to normal activity and should not be used through the day. To do so or worsening pain at night can result from ongoing tissue damage and development of tolerance to the prescribed medicine. 6. Please allow 2-3 days to process refills. Prescriptions will not be mailed but must be picked up at the office. FOLLOW UP VISIT: Keep your scheduled follow-up appointment. Any questions, please call the office at . Pending Studies at Discharge: No Stand-Alone Forms: My [facility] [employer], Smoking Cessation Medications and DC Order Prescriptions: New tramadol 50 mg tablet 50 mg PO Q6H PRN (Reason: pain, moderate) Qty: 30 0RF oxycodone 5 mg tablet 5 mg PO Q6H PRN (Reason: pain, severe) Qty: 30 0RF Continued fluticasone propion-salmeterol [Advair Diskus] 250-50 mcg/dose blister with device 1 ea INHALATION BID prednisone 10 mg tablet 10 mg PO .TAPER UD Rx Instructions: RESCUE KIT>COPD FLARE UP atorvastatin [Lipitor] 20 mg tablet 20 mg PO HS methotrexate sodium 2.5 mg tablet 15 mg PO .QTHUR lisinopril 10 mg tablet 10 mg PO HS warfarin 5 mg tablet 10 mg PO UD Label Comments: 10 mg 5x week>takes 5mg mondays and fridays folic acid 1 mg tablet 1 mg PO QAM albuterol sulfate 90 mcg/actuation HFA aerosol inhaler 2 puff INHALATION Q4 PRN (Reason: Shortness Of Breath Or Wheezing) Spiriva Respimat 2.5 mcg/actuation mist 2 inh INHALATION DAILY ipratropium-albuterol 0.5 mg-3 mg(2.5 mg base)/3 mL Solution For Nebulization 3 ml INHALATION QID PRN (Reason: Shortness Of Breath Or Wheezing) polyethylene glycol 3350 [Miralax] 17 gram Powder In Packet 17 g PO DAILY PRN (Reason: Constipation) triamcinolone acetonide 0.1 % Cream 1 applic TOPICAL BID PRN (Reason: BREAKOUTS) tamsulosin [Flomax] 0.4 mg capsule 0.4 mg PO QPM betamethasone valerate 0.1 % Cream 1 applic TOPICAL BID PRN (Reason: FLARE UPS) amoxicillin-pot clavulanate 875-125 mg tablet 1 tab PO .BID UD Rx Instructions: RESCUE KIT. cyclobenzaprine 5 mg tablet 5 mg PO TID PRN (Reason: muscle spasm) Qty: 14 0RF enoxaparin [Lovenox] 100 mg/mL Syringe 100 mg SUBCUT Q12H Label Comments: "bridge for coumadin preop" Discharge Orders: Discharge Order (Routine); Ordered 04/04/22 Ordered By: Jay Gallardo Admission Data Admit Date/Time: 04/02/22 15:18 Attending Provider: Jay Gallardo Admit Provider: Jay Galladro Primary Care Provider: Sumit Levy Other Providers: Arti Chamorro ; Margaret Covington ; Marisela Charlton
--- NOTE | 2022-04-04 08:58 | Hospitalist Progress Note ---
Date of Service April 04, 2022 Assessment & Plan (1) History of spinal surgery: Plan: This is a 61yo F with a PMH of PE on coumadin, current 1 ppd smoker, ROWAN on Bipap, COPD and other medical problems as below who is POD#0 s/p lumbar decompression bilateral medial facetectomies and foraminotomies L1-L2 L2-L3, posterior spinal fusion L2-L3 and placement of posterior instrumentation from L2 with connectors to L3-L4 by Dr. Gallardo. POD#2 s/p lumbar decompression bilateral medial facetectomies and foraminotomies L1-L2 L2-L3, posterior spinal fusion L2-L3 and placement of posterior instrumentation from L2 with connectors to L3-L4 by Dr. Gallardo Per ortho for pain control, wound care, anticoagulation and activities Monitor H&H (EBL 150ml, pre-op hgb 18.2) hgb 17.1 today Continue incentive spirometry, PT/OT when appropriate (2) Pulmonary embolism: Plan: History of PE and lupus anticoagulant syndrome on Coumadin Coumadin has been held and patient has been bridged with subcu Lovenox, per anticoagulation clinic Due to afternoon surgery today, will wait until tomorrow afternoon to resume Coumadin INR 1.[address] Gallardo who wishes to hold bridge until tomorrow evening to allow for hemostasis 48hrs post op so will adjust. Continue subcu Lovenox as scheduled below: POD#2 : Coumadin 10-15mg @ 1600, Lovenox 100mg @ 1999 POD#3 : Coumadin 10mg @ 1600, Lovenox 100mg @ 08, 1999 POD#4 : Resume home coumadin schedule (5mg MoFri, 10mg all other days), Lovenox 100mg @ 799, 1999 until INR therapeutic or seen by MTM (3) Arthritis: Plan: History of inflammatory polyarthritis on methotrexate -hold for now per Ortho (4) COPD, moderate: Plan: At baseline. Continue Spiriva, DuoNeb as needed. Encourage incentive spirometry (5) Tobacco abuse: Plan: Smoking 1 pack/day. Declined nicotine patch. Continue discussion of cessation (6) Obesity (BMI 30-39.9): (7) Sleep apnea: Plan: Bipap HS Code status:DVT ppx: per primary service PCP: Mildred Dispo: Per primary service Patient seen in collaboration with Dr. Covington. Please see addendum. Thank you for this consultation. We will follow the patient with you during their hospital stay. You can reach a member of the [facility]ist Team 30/09 via [employer]. A total of 35 minutes were spent with greater than 50% of that time face to face with the patient, personally reviewing all current laboratories, imaging studies, past medication reconciliation, outpatient chart review, and discussion with specialists to collaborate care for the patient with attending. Please see attending documentation for corrections and/or additions. Admission and Anticipated Discharge Date Admission Date: April 02, 2022 Supervising Physician Co-Signing Physician Notes Patient seen and examined at bedside as a follow-up of medical management for spinal surgery. Patient has a history of PE and lupus anticoagulant syndrome on Coumadin. Patient doing fairly well postoperatively, reports pain under control at operative site, denies any RLE radicular symptoms. On examination, patient on room air, heart/lung/abdomen examination fairly WNL, low back with clean dressing with some light soakage, CHAPARRO drain with minimal serosanguineous collection noted. Rest of the examination as above. Pt to follow up w/ coumadin clinic in 2 days and use lovenox until inr is therapeutic on warfarin. I have seen and examined the patient and have discussed the case with the provider above. I agree with the assessment and plan as stated. Subjective Patient was seen and examined in room 321-1 in follow-up for lumbar surgery. Denies any new complaints overnight although admits he did not sleep well secondary to pain and difficulties with CPAP. Feels he will be more comfortable when he returns home. No pain or paresthesias in lower extremities. Denies f/c/s, chest pain, sob, n/v/d. Passing flatus. Review of Systems Review of Systems: At least ten systems reviewed and negative except as noted in the HPI. Physical Exam Physical Exam: Gen: WD/WN, obese, M, NAD, A&O x3 HEENT: Normocephalic, atraumatic, conjunctivae moist, sclerae anicteric, mucous membranes moist Lung: Clear to Auscultation bilaterally, no wheezes/rales/rhonchi Heart: Regular rate, regular rhythm, no murmurs, rubs, or gallops Abdomen: Soft, NT, ND +BS x 4 Extremities: No edema, lumbar dressing c/d/i. +CHAPARRO drain with serosanguineous drainage Skin: Warm, no rash Results & Data Results & Data ([facility]) Vital Signs (Past 12 Hours) Vital Signs Temp Pulse Pulse Resp BP Pulse Ox O2 Del Method 04/04/22 07:33 36.9 C 77 16 97/62 L 96 Oxymask 04/03/22 23:24 75 24 92 04/03/22 21:51 36.8 C 69 20 115/74 94 Room Air FiO2 04/04/22 07:33 04/03/22 23:24 3 04/03/22 21:51
[2022-04-04 12:34] LABS: Hematocrit (blood only) 47.8 % (42.0-52.0); Hemoglobin 16.5 g/dl (14.0-18.0)
[2022-04-04] MEDS ORDERED: WARFARIN SOD 10 MG TAB PO SCH (16:00)
[2022-04-04] MEDS ORDERED: ENOXAPARIN INJ 120 MG/0.8 ML SYR SQ SCH (20:00)
== END 2022-04-04 17:26 | disposition home or self-care (01) | DRG 455 ==
LOC: ASU 10:54 → 3E 15:18
DX: Z79.01 Long term (current) use of anticoagulants; J44.9 Chronic obstructive pulmonary disease, unspecified; Z79.51 Long term (current) use of inhaled steroids; E66.9 Obesity, unspecified; M54.10 Radiculopathy, site unspecified; F17.210 Nicotine dependence, cigarettes, uncomplicated; Z79.899 Other long term (current) drug therapy; Z68.38 Body mass index [BMI] 38.0-38.9, adult; E78.5 Hyperlipidemia, unspecified; M48.061 Spinal stenosis, lumbar region without neurogenic claudication; Z86.711 Personal history of pulmonary embolism; G47.33 Obstructive sleep apnea (adult) (pediatric); M19.90 Unspecified osteoarthritis, unspecified site